=== PATIENT | female | born 1945 | race Two or more races ===

== ENCOUNTER 2018-09-11 14:18 | Emergency (ER) | payer BC, OTHER ==
[2018-09-11 14:33] VITALS: PULSE 70; TEMP 98; BMI 32.1
--- NOTE | 2018-09-11 14:54 | PDOC ---
Attending Attestation - Resident Resident Name: Purvi Vivar - ED Attending Attestation I have performed the following: I have examined & evaluated the patient, The case was reviewed & discussed with the resident, I agree w/resident's findings & plan - HPI HPI: 09/11/18 16:43 The patient is a 72 year old female, with a significant past medical history of hypertension, hyperlipidemia, diabetes, and CAD (with VT 2012) stenting x2 @[facility]) , who presents to the emergency department with, left shoulder pain. She denies recent fevers, chills, headache or dizziness. She denies recent nausea, vomit, diarrhea or constipation. She denies recent dysuria, frequency, urgency or hematuria. She denies recent shortness of breath. Allergies: NKDA Past surgical history: Cardiac stenting x2 Social history: Smoker. Primary Care Physician: Dr. Nash <Fawn Kumar - Last Filed: 09/11/18 16:43> - Physicial Exam PE: 09/12/18 19:17 Agree with resident exam. PAteint is alert and in NAD. Lungs are clear. Heart regular rate and rhythm. No shoulder pain or tenderness. - Medical Decision Making 09/12/18 19:18 Pt presents to the ED complaining of a one day history of constant L shoulder pain without chest pain or shortness of breath. Denies other complaints. EKG and troponin are within normal limits. ACS unlikely given the atypical nature of her symptoms and her normal EKG and troponin. will discharge home. <Minna Crawford - Last Filed: 09/12/18 19:19> Attestations - Attestations 09/11/18 16:44 Documentation prepared by Fawn Kumar, acting as medical social consultant for Minna Crawford MD. <Fawn Kumar - Last Filed: 09/11/18 16:43>
--- NOTE | 2018-09-11 15:17 | PDOC ---
History of Present Illness - General Chief Complaint: Pain, Acute Stated Complaint: LT SHOULDER PAIN Time Seen by Provider: 09/11/18 14:46 History Source: Patient Exam Limitations: No Limitations - History of Present Illness Initial Comments: 09/11/18 14:52 72YOF with h/o hypertension, hyperlipidemia, diabetes, and CAD with [place] (2011) status post 2 stents done at [facility], who p/w left shoulder pain since awakening this morning. Denies any falls or injuries, believes that she slept on the arm wrong. Denies any recent f/c/n/v/d/c, numbness, tingling, weakness, SOB, chest pain, etc. Took Tylenol last dose this morning without relief. Past History - Past Medical History Allergies/Adverse Reactions: Allergies Allergy/AdvReac Type Severity Reaction Status Date / Time No Known Allergies Allergy Verified 12/25/14 16:11 Home Medications: Ambulatory Orders Glimepiride [Amaryl] 4 mg PO DAILY 04/03/12 metFORMIN HCL [Glucophage -] 1,000 mg PO BID 04/03/12 Clopidogrel Bisulfate [Plavix -] 75 mg PO DAILY 06/24/13 Lisinopril [Prinivil] 20 mg PO DAILY 06/24/13 Amlodipine Besylate [Norvasc -] 10 mg PO DAILY 07/05/13 Aspirin [ASA -] 81 mg PO DAILY 07/05/13 Carvedilol [Coreg] 6.25 mg PO BID 07/05/13 Levofloxacin [Levaquin] 750 mg PO DAILY #5 tablet 12/27/14 Metronidazole [Flagyl] 500 mg PO TID #18 tablet 12/27/14 Anemia: No Asthma: Yes Cancer: No Cardiac Disorders: No CVA: No COPD: No CHF: No DVT: No Dementia: No Diabetes: Yes (controlled w/ oral pills) Dialysis: No GI Disorders: No Disorders: No HTN: Yes Hypercholesterolemia: Yes Liver Disease: No Thyroid Disease: No - Surgical History Abdominal Surgery: Yes Cholecystectomy: Yes - Suicide/Smoking/Psychosocial Hx Smoking Status: No Smoking History: Current every day smoker Have you smoked in the past 12 months: No Number of Cigarettes Smoked Daily: 0 Information on smoking cessation initiated: No Hx Alcohol Use: No Drug/Substance Use Hx: No Substance Use Type: Alcohol Hx Substance Use Treatment: No Review of Systems - Review of Systems Able to Perform ROS?: Yes Comments:: GEN: no fever, chills, malaise, generalized weakness, or weight change HEENT: no ear pain, sore throat, vision change, or eye pain CV: no chest pain, palpitations, lightheadedness, syncope, or edema RESP: no cough, wheezing, or SOB GI: no abdominal pain, nausea, vomiting, diarrhea, constipation, or white/black/ bloody stool : no dysuria, hematuria, incontinence, retention, bleeding, or discharge MSK: left upper back/shoulder pain, otherwise no muscle weakness/pain, or joint swelling/pain NEURO: no headache, seizure, vertigo, numbness, tingling, or focal weakness PSYCH: no substance use, no behavior change SKIN: no jaundice, no rash ROS otherwise negative except as noted in HPI *Physical Exam - Vital Signs Last Vital Signs Temp Pulse Resp BP Pulse Ox 98.0 F 70 16 148/72 100 09/11/18 14:18 09/11/18 14:18 09/11/18 14:18 09/11/18 14:18 09/11/18 14:18 - Physical Exam Comments: GENERAL: well-appearing, A/Ox4, no distress, answers questions appropriately HEENT: PERRLA, EOMI, moist mucous membranes NECK/BACK: no midline ttp, no spinal stepoff or deformity, no hematoma, full ROM , neck supple, patient points to area of maximal pain (points overlying left scapula) but this is nontender to palpation CARDIOVASCULAR: regular rate/rhythm, normal S1S2, no MGR, strong peripheral pulses, capillary refill <2 seconds, extremities wwp, no edema LUNGS/RESPIRATORY: no respiratory distress, CTAB GI/ABDOMEN: symmetric [id number], normoactive BS, soft, no ttp, no midline pulsatile masses : no CVA tenderness EXTREMITIES: left shoulder full ROM without pain, no muscle atrophy, no acute deformity, no edema SKIN: warm and dry, no pallor, no jaundice, no rash, no bruising, no skin breakdown, no cuts, no lesions NEUROLOGICAL: GCS 15, CN II-XII grossly intact, 5/5 strength proximally and distally, no facial droop Moderate Sedation - Procedure Monitoring Vital Signs: Procedure Monitoring Vital Signs Temperature 98.0 F 09/11/18 14:18 Pulse Rate 70 09/11/18 14:18 Respiratory Rate 16 09/11/18 14:18 Blood Pressure 148/72 09/11/18 14:18 O2 Sat by Pulse Oximetry (%) 100 09/11/18 14:18 ED Treatment Course - LABORATORY CBC & Chemistry Diagram: 09/11/18 15:40 09/11/18 15:40 *DC/Admit/Observation/Transfer Diagnosis at time of Disposition: Shoulder pain Qualifiers: Chronicity: acute Laterality: left Qualified Code(s): M25.512 - Pain in left shoulder - Discharge Dispostion Disposition: HOME Condition at time of disposition: Stable Decision to Admit order: No - Referrals Referrals: Talha Nash MD [Primary Care Provider] - - Patient Instructions Printed Discharge Instructions: DI for Shoulder Pain Additional Instructions: You were seen in the ER for shoulder and upper back pain. We did lab work, an electrocardiogram, and a shoulder and chest x-ray, and we did not find any concerning abnormalities. After our assessment, we do not believe you are having a medical emergency at this time, and we believe you are safe to go home. Take over the counter pain medications for your pain, as instructed on the medication label. Please follow up with your primary care provider in 1-3 days. Call their clinic as soon as possible, tell them you were seen in the ER, and tell them you need an appointment. If you have any new or worsening symptoms , especially worsening chest pain, jaw pain, shoulder/arm pain, shortness of breath, sweats, nausea, loss of consciousness, palpitations, or other symptoms, please come back to the ER at any time (24 hours a day). If you are having severe or life threatening symptoms, or symptoms that make it unsafe to drive or have someone drive you, please call 911. Usted fue atendido en la zuri de emergencias por dolor de hombro y espalda superior. Hicimos un trabajo de laboratorio, un electrocardiograma y tania radiografa de hombro y trax, y no encontramos ninguna anomala preocupante. Despus de nuestra evaluacin, no creemos que tenga tania emergencia mdica en preet momento, y creemos que puede irse a casa sin peligro. [place] los medicamentos para el dolor de venta melissa para callahan dolor, joe se indica en la etiqueta del medicamento. Por favor, lauren un seguimiento con callahan proveedor de atencin primaria en 1-3 grayson. Llame a callahan clnica lo antes posible, dgales que lo atendieron en la zuri de emergencias y que necesita tania luis f. Si tiene algn sntoma nuevo o que empeora, especialmente empeoramiento del dolor en el pecho, dolor en la mandbula, dolor en el hombro / brazo, falta de aliento, sudor, nusea, prdida de conciencia, palpitaciones u otros sntomas, vuelva a la zuri de emergencias en cualquier momento ( 24 horas al suzan). Si tiene sntomas graves o potencialmente mortales, o sntomas que hacen que no sea seguro conducir o que alguien lo lleve, llame al 911. - Post Discharge Activity
[2018-09-11 15:49] LABS: BASO % 1.1 % (0-2.0); EOS % 2.4 % (0-4.5); HEMATOCRIT 38.2 % (32.4-45.2); HEMOGLOBIN 12.9 GM/dL (10.7-15.3); LYMPH % 22.6 % (8-40); MCH 31.5 pg (25.7-33.7); MCHC 33.7 g/dl (32.0-36.0); MEAN CELL VOLUME 93.5 fl (80-96); MEAN PLT VOLUME 7.8 fl (7.5-11.1); MONO % 6.9 % (3.8-10.2); PLATELET COUNT 248 K/MM3 (134-434); RBC 4.09 M/mm3 (3.60-5.2); RDW 13.1 % (11.6-15.6); WHITE BLOOD COUNT 9.2 K/mm3 (4.0-10.0)
[2018-09-11 16:20] LABS: ALBUMIN 3.5 g/dl (3.4-5.0); ALK PHOS 84 U/L (45-117); ANION GAP 9 MMOL/L (8-16); BILIRUBIN,TOTAL 0.2 mg/dL (0.2-1); BLOOD UREA NITROGEN 16 mg/dL (7-18); CALCIUM 8.8 mg/dL (8.5-10.1); CHLORIDE 109 mmol/L (98-107); CO2 23 mmol/L (21-32); CREATININE 1.1 mg/dL (0.55-1.3); GLUCOSE,RANDOM 237 mg/dL (74-106); MAGNESIUM 1.7 mg/dL (1.8-2.4); POTASSIUM 4.1 mmol/L (3.5-5.1); SGOT/AST 13 U/L (15-37); SGPT/ALT 19 U/L (13-61); SODIUM 141 mmol/L (136-145)
[2018-09-11] MEDS ORDERED: ACETAMINOPHEN 500 MG TABLET (FP) PO ONE (18:21)
[2018-09-11] MEDS ORDERED: ACETAMINOPHEN 325 MG TABLET (FP) ONE (18:38)
[2018-09-11 18:48] VITALS: BP 135/75
--- NOTE | 2018-09-12 16:44 | EKG ---
Test Reason : Blood Pressure : / mmHG Vent. Rate : 067 BPM Atrial Rate : 067 BPM P-R Int : 166 ms QRS Dur : 082 ms QT Int : 388 ms P-R-T Axes : 040 018 049 degrees QTc Int : 409 ms NORMAL SINUS RHYTHM NORMAL ECG WHEN COMPARED WITH ECG OF 25-DEC-2014 18:08, CRITERIA FOR INFERIOR INFARCT ARE NO LONGER PRESENT NONSPECIFIC T WAVE ABNORMALITY, IMPROVED IN INFERIOR LEADS NONSPECIFIC T WAVE ABNORMALITY NO LONGER EVIDENT IN ANTEROLATERAL LEADS Confirmed by Jailyn Pierson ([id number]) on 09/12/2018 4:43:55 PM Referred By: Confirmed By:Jailyn Pierson
== END 2018-09-11 18:47 | disposition home or self-care (01) ==
LOC: JER 14:18
DX: M25.512 Pain in left shoulder (principal); E78.5 Hyperlipidemia, unspecified; E11.9 Type 2 diabetes mellitus without complications; I25.10 Atherosclerotic heart disease of native coronary artery without angina pectoris; I25.2 Old myocardial infarction; Z95.5 Presence of coronary angioplasty implant and graft; I10 Essential (primary) hypertension; E78.00 Pure hypercholesterolemia, unspecified
CPT/HCPCS: 36415; 71046-TC-FY; 73030-TC-LT-FY; 80053; 82550; 82553; 83735; 84484; 85025; 93005; 93010; 99282-25

== ENCOUNTER 2019-03-01 06:25 | Emergency (ER) | payer BC, OTHER ==
[2019-03-01 06:51] VITALS: TEMP 98.1; BMI 30.1
--- NOTE | 2019-03-01 07:16 | PDOC ---
History of Present Illness - General Chief Complaint: Blood Pressure Problem Stated Complaint: HYPERTENSION Time Seen by Provider: 03/01/19 07:03 - History of Present Illness Initial Comments: 03/01/19 09:23 The patient is a 73 year old female with a history of HTN, DM who presents for evaluation of elevated blood pressure. The patient reports 1 episode of non- bilious, non-bloody vomiting with associated 2 episodes of diarrhea 1 day ago. She noted some generalized weakness earlier this morning prompting her presentation to the ED for further evaluation. She noted that her blood pressure was elevated here in the ED as well. She notes on presentation that her symptom have resolved and she is currently asymptomatic. She otherwise denies fevers, chills, SOB, chest pain, nausea, vomiting, abdominal pain, or changes with urination or bowel movements. Past History - Past Medical History Allergies/Adverse Reactions: Allergies Allergy/AdvReac Type Severity Reaction Status Date / Time No Known Allergies Allergy Verified 03/01/19 06:51 Home Medications: Ambulatory Orders Glimepiride [Amaryl] 4 mg PO DAILY 04/03/12 metFORMIN HCL [Glucophage -] 1,000 mg PO BID 04/03/12 Lisinopril [Prinivil] 20 mg PO DAILY 06/24/13 Amlodipine Besylate [Norvasc -] 10 mg PO DAILY 07/05/13 Aspirin [ASA -] 81 mg PO DAILY 07/05/13 Metronidazole [Flagyl] 500 mg PO TID #18 tablet 12/27/14 Anemia: No Asthma: Yes Cancer: No Cardiac Disorders: No CVA: No COPD: No CHF: No DVT: No Dementia: No Diabetes: Yes (controlled w/ oral pills) Dialysis: No GI Disorders: No Disorders: No HTN: Yes Hypercholesterolemia: No Liver Disease: No Thyroid Disease: No - Surgical History Abdominal Surgery: Yes Cholecystectomy: Yes - Suicide/Smoking/Psychosocial Hx Smoking Status: No Smoking History: Unknown if ever smoked Have you smoked in the past 12 months: No Number of Cigarettes Smoked Daily: 0 Information on smoking cessation initiated: No Hx Alcohol Use: No Drug/Substance Use Hx: No Substance Use Type: Alcohol Hx Substance Use Treatment: No Review of Systems - Review of Systems Comments:: 03/01/19 09:31 Constitutional: No fevers, chills, malaise HEENT: No Rhinorrhea, nasal congestion, visual changes Cardiovascular: No chest pain, syncope, palpitations, lightheadedness Respiratory: No Cough, SOB, Hemoptysis, Gastrointestinal: Nausea, vomiting. No Abdominal pain, Constipation, Diarrhea, Melena Genitourinary: No Dysuria, Frequency, Urgency, Hesitancy, Hematuria, Flank pain Musculoskeletal: No Myalgia, arthralgia Skin: No rashes, itching, bruising, pallor Neurologic: No Headache, Dizziness, Numbness, Weakness, or Tingling Psychiatric: No Hallucinations. No SI or HI *Physical Exam - Vital Signs Last Vital Signs Temp Pulse Resp BP Pulse Ox 98.1 F 53 L 16 186/79 H 98 03/01/19 06:46 03/01/19 06:46 03/01/19 06:46 03/01/19 06:46 03/01/19 06:46 - Physical Exam Comments: 03/01/19 09:32 General Appearance: Nourished. No Apparent Distress HEENT: EOMI, OSKAR. No Pharyngeal Erythema, Tonsillar Exudate, Tonsillar Erythema Neck: No Cervical Lymphadenopathy Respiratory/Chest: Lungs Clear, Normal Breath Sounds. No Crackles, Rales, Rhonchi, Wheezing Cardiovascular: Regular Rhythm, Regular Rate. No Murmur, Gallops, Rubs Gastrointestinal/Abdominal: Normal Bowel Sounds, Soft. No Guarding, Rebound, Tenderness Musculoskeletal: No CVA Tenderness Extremity: Normal Capillary Refill Integumentary: Normal Color, Dry, Warm Neurologic: Fully Oriented, Alert, Normal Mood/Affect, Normal Response, ED Treatment Course - LABORATORY CBC & Chemistry Diagram: 03/01/19 07:35 03/01/19 08:42 Medical Decision Making - Medical Decision Making 03/01/19 09:33 The patient is a 73 year old female with a history of HTN, DM who presents for evaluation of elevated blood pressure. Given the patient's history and physical exam, we will obtain a cbc, cmp, troponin, ekg, chest plain film to evaluate further. The patient notes that she did not take her blood pressure medications today. We will treat her with her home doses of norvasc and lisinopril and continue to monitor and reassess while here in the ED. 03/01/19 10:37 CBC, cmp, troponin are unremarkable. Chest plain film is unremarkable as read by our radiologist. The patient continues to remain asymptomatic with improvement in her blood pressure after treatment with her home medications. We are comfortable discharging the patient home in stable condition. Patient and family made aware of impression and plan, return precautions discussed including but not limited to worsening pain or symptoms, fevers, or signs of infection, chest pain, respiratory distress, inability to tolerate oral intake, dehydration, syncope, or neurologic changes. The patient is to follow up with PMD as recommended within 1 week, follow up information provided and the patient will call for an appointment. The patient is to take medications as instructed for duration of time and continue with supportive care, avoid triggers and precipitants. Patient is safe for outpatient follow-up. *DC/Admit/Observation/Transfer Diagnosis at time of Disposition: HTN (hypertension) Qualifiers: Hypertension type: unspecified Qualified Code(s): I10 - Essential (primary) hypertension - Discharge Dispostion Disposition: HOME Condition at time of disposition: Stable Decision to Admit order: No - Referrals Referrals: Talha Nash MD [Primary Care Provider] - - Patient Instructions Printed Discharge Instructions: DI for High Blood Pressure, How to Monitor Your Blood Pressure at Home Additional Instructions: 1) Please follow-up with your primary care doctor in the next 2-3 days. Please call tomorrow to schedule a follow up appointment. If you cannot follow up with your doctor within 1 week please return to the Emergency Department for any urgent issues. 2) Your laboratory / imaging results were normal here in the ER. 3) If you have any worsening of symptoms or any other concerns please return to the ER immediately. Return if worsening symptoms including fevers, headache, vomiting, visual or hearing disturbances, abdominal pain, chest pain, shortness of breath, syncope, dehydration, inability to take things by mouth/vomiting, altered mental status, or worsening concerning symptoms. 4) Please continue taking your home medications as directed. Side effects may include upset stomach, abdominal pain, vomiting, or diarrhea. Do not drink alcohol with your medications. - Post Discharge Activity
[2019-03-01] MEDS ORDERED: LISINOPRIL 20 MG TABLET (FP) PO ONE (07:21)
[2019-03-01] MEDS ORDERED: amLODIPine BESYLATE 10 MG TABLET (FP) PO ONE (07:21)
[2019-03-01] MEDS ORDERED: LISINOPRIL 20 MG TABLET (FP) ONE (07:24)
[2019-03-01] MEDS ORDERED: amLODIPine BESYLATE 5 MG TABLET (FP) ONE (07:24)
--- NOTE | 2019-03-01 07:47 | PDOC ---
Attending Attestation - Resident Resident Name: Yony Vicente - ED Attending Attestation I have performed the following: I have examined & evaluated the patient, The case was reviewed & discussed with the resident, I agree w/resident's findings & plan - HPI HPI: 03/01/19 07:47 72YOF with h/o hypertension, hyperlipidemia, diabetes, and CAD with [place] (2011) status post 2 stents presenting with weakness today, preceded by n/v/d, nonbloody and nonbilious since yesterday, missed her AM antihypertensive agents. PMD Dr Esparza - Physicial Exam PE: 03/01/19 07:48 Agree with the resident's HPI and PE as documented in the electronic medical record. alert, oriented appropriately, NAD, well appearing, EOMI, PERRL, MMM, nl conjunctiva, anicteric; neck supple. lungs clear, RRR, no murmur, abdomen soft nontender. Back nontender. MONET x4, no focal neuro deficits. No peripheral edema. normal color for ethnicity, WWP. 03/01/19 07:48 - Medical Decision Making 03/01/19 07:57 See HPI for details. Prior notes reviewed, including admissions, discharges and consultations. Vital signs reviewed, asympatomatic, HTN at 186/79 Vital Signs Temp Pulse Resp BP Pulse Ox 98.1 F 53 L 16 186/79 H 98 03/01/19 06:46 03/01/19 06:46 03/01/19 06:46 03/01/19 06:46 03/01/19 06:46 DDX htn urgency/emergency, electrolyte/metabolic derangements, dehydration, ACS , arrhythmia, Cr elevation, end organ damage no e/o encephalopathy. no e/o CHF laboratory results and imaging reviewed, basic labs and lytes wnl, CXR_cardiomegaly, stable, no infiltrate or edema Cardiac panel_neg trop, reassuring, doubt cardiac/ACS EKG normal sinus rhythm at 55 bpm, no interval abnormalities, narrow QRS, ST and T wave segments and morphology normal. Nonspecific T wave abnormalities ED course -interventions: lisinopril and norvasc, reassess BP otherwise asymptomatic HTN, missed AM dose and had episodes of n/v/d since resolving abdomen benign, no tenderness, no peritoneal findings repeat VS improved downtrending BP advised rest and hydration, compliance with antihypertensive and medication regimen. 'Pt to be discharged in stable condition. Patient made aware of clinical impression, treatment recommendations and disposition plan, return precautions discussed (including but not limited to new or persistent/worsening symptoms, pain, fevers, or signs of infection, chest pain, respiratory distress, inability to tolerate oral intake, dehydration, syncope, or neurologic changes) . Follow up with PMD and/or specialist as recommended, follow up information provided, take medications as instructed for duration of time. continue with supportive care, avoid triggers and precipitants. All questions answered to patient's satisfaction and expressed understanding and comfort with this. At the time of discharge, the patient is alert, clinically improved, tolerating po and verbalizes understanding of instructions, satisfied with the care received and felt comfortable with the plan. Patient does not suffer from an acute life- threatening medical condition at this time and is safe for outpatient follow- up. 03/01/19 07:59 03/01/19 10:11 03/01/19 10:12 Heart Score/ECG Review #1 ECG reviewed & interpreted by me at: 07:45 General ECG Interpretation: Sinus Rhythm, Normal Intervals Compared to previous ECG there are: No significant change 03/01/19 07:58 EKG normal sinus rhythm at 55 bpm, no interval abnormalities, narrow QRS, ST and T wave segments and morphology normal. Nonspecific T wave abnormalities
[2019-03-01 08:01] LABS: BASO % 0.8 % (0-2.0); EOS % 2.7 % (0-4.5); HEMATOCRIT 37.7 % (32.4-45.2); HEMOGLOBIN 12.8 GM/dL (10.7-15.3); LYMPH % 22.1 % (8-40); MCH 31.3 pg (25.7-33.7); MCHC 33.9 g/dl (32.0-36.0); MEAN CELL VOLUME 92.4 fl (80-96); MEAN PLT VOLUME 7.4 fl (7.5-11.1); MONO % 5.6 % (3.8-10.2); NEUT % 68.8 % (42.8-82.8); PLATELET COUNT 285 K/MM3 (134-434); RBC 4.08 M/mm3 (3.60-5.2); RDW 13.2 % (11.6-15.6)
[2019-03-01 09:25] LABS: ALK PHOS 81 U/L (45-117); ANION GAP 6 MMOL/L (8-16); BILIRUBIN,TOTAL 0.4 mg/dL (0.2-1); BLOOD UREA NITROGEN 15.3 mg/dL (7-18); CALCIUM 9.4 mg/dL (8.5-10.1); CHLORIDE 106 mmol/L (98-107); CO2 28 mmol/L (21-32); CREATININE 1.2 mg/dL (0.55-1.3); GLUCOSE,RANDOM 101 mg/dL (74-106); MAGNESIUM 2.3 mg/dL (1.8-2.4); POTASSIUM 4.2 mmol/L (3.5-5.1); SGOT/AST 32 U/L (15-37); SGPT/ALT 26 U/L (13-61); SODIUM 140 mmol/L (136-145); TOT PROT 7.7 g/dl (6.4-8.2)
[2019-03-01 10:35] VITALS: BP 163/73; PULSE 71
--- NOTE | 2019-03-01 17:28 | EKG ---
Test Reason : Blood Pressure : / mmHG Vent. Rate : 055 BPM Atrial Rate : 055 BPM P-R Int : 168 ms QRS Dur : 084 ms QT Int : 434 ms P-R-T Axes : 051 000 032 degrees QTc Int : 415 ms SINUS BRADYCARDIA INFERIOR INFARCT , AGE UNDETERMINED ABNORMAL ECG WHEN COMPARED WITH ECG OF 11-SEP-2018 14:28, INFERIOR INFARCT IS NOW PRESENT Confirmed by MARTI COLLINS MD ([id number]) on 03/01/2019 5:28:37 PM Referred By: Confirmed By:MARTI COLLINS MD
== END 2019-03-01 11:02 | disposition home or self-care (01) ==
LOC: JER 06:25
DX: I10 Essential (primary) hypertension (principal); E11.9 Type 2 diabetes mellitus without complications
CPT/HCPCS: 36415; 71045-TC-FY; 80053; 82550; 82553; 83735; 84100; 84484; 85025; 93005; 93010; 99283-25

== ENCOUNTER 2019-06-28 18:14 | Emergency (ER) | payer OTHER ==
[2019-06-28 18:26] VITALS: BP 175/76; PULSE 74; TEMP 98.4; BMI 30.8
--- NOTE | 2019-06-28 19:52 | PDOC ---
*Physical Exam - Vital Signs Last Vital Signs Temp Pulse Resp BP Pulse Ox 98.4 F 74 16 175/76 H 99 06/28/19 18:20 06/28/19 18:20 06/28/19 18:20 06/28/19 18:20 06/28/19 18:20 ED Treatment Course - LABORATORY CBC & Chemistry Diagram: 06/28/19 20:20 06/28/19 20:20 Medical Decision Making - Medical Decision Making 06/28/19 19:51 Patient seen by the advanced practice provider under my direct supervision. Ancillary testing reviewed as necessary. I agree with plan as outlined by the advanced practice provider. Discharge - Discharge Information Problems reviewed: Yes Clinical Impression/Diagnosis: Dizziness Hypertension Qualifiers: Hypertension type: unspecified Qualified Code(s): I10 - Essential (primary) hypertension Condition: Stable - Follow up/Referral Referrals: Talha Nash MD [Primary Care Provider] - Call tomorrow - Patient Discharge Instructions Patient Printed Discharge Instructions: Recommendations to Help Prevent High Blood Pressure Additional Instructions: start a low sodium diet. please follow up with your doctor Additional Instructions: * Please call your personal physician to report your Emergency Department visit and to report your progress, if any. * If there is no improvement in symptoms in 2 days call your physician. * Return to the Emergency Department for any worsening symptoms. - Post Discharge Activity
--- NOTE | 2019-06-28 20:09 | PDOC ---
History of Present Illness - General Chief Complaint: Nausea Stated Complaint: Nausea Time Seen by Provider: 06/28/19 19:50 History Source: Patient - History of Present Illness Initial Comments: 06/28/19 20:02 73 year old female with dizziness since last night, nausea and high blood pressure since last night. denies headache, vomiting, chest pain, cough, abdominal pain, urinary symptoms. patient is currently on carvedilol and lisinopril. reports that nausea and dizziness has resolved PMHX: diabetes, hypertension, hypercholesterolemia, carotid stent PMD: [place] 06/28/19 20:05 06/28/19 20:14 06/28/19 20:15 Past History - Past Medical History Allergies/Adverse Reactions: Allergies Allergy/AdvReac Type Severity Reaction Status Date / Time No Known Allergies Allergy Verified 03/01/19 06:51 Home Medications: Ambulatory Orders Glimepiride [Amaryl] 4 mg PO DAILY 04/03/12 metFORMIN HCL [Glucophage -] 1,000 mg PO BID 04/03/12 Lisinopril [Prinivil] 20 mg PO DAILY 06/24/13 Amlodipine Besylate [Norvasc -] 10 mg PO DAILY 07/05/13 Aspirin [ASA -] 81 mg PO DAILY 07/05/13 Metronidazole [Flagyl] 500 mg PO TID #18 tablet 12/27/14 Anemia: No Asthma: Yes Cancer: No Cardiac Disorders: No CVA: No COPD: No CHF: No DVT: No Dementia: No Diabetes: Yes (controlled w/ oral pills) Dialysis: No GI Disorders: No Disorders: No HTN: Yes Hypercholesterolemia: No Liver Disease: No Thyroid Disease: No - Surgical History Abdominal Surgery: Yes Cholecystectomy: Yes - Immunization History Immunization Up to Date: No - Psycho Social/Smoking Cessation Hx Smoking Status: No Smoking History: Never smoked Have you smoked in the past 12 months: No Number of Cigarettes Smoked Daily: 0 Information on smoking cessation initiated: No Hx Alcohol Use: No Drug/Substance Use Hx: No Substance Use Type: Alcohol Hx Substance Use Treatment: No Cardiac Specific PMH - Complaint Specific PMHX Abdominal Aortic Aneurysm: No Angina: No Cardiac Arrhythmia: No Cardiac Stent: No GERD: No Pacemaker: No Pulmonary Embolus: No Valvular Heart Disease: No Review of Systems - Review of Systems Able to Perform ROS?: Yes Is the patient limited Qatari proficient: No Constitutional: No: Symptoms Reported, See HPI, Chills, Diaphoresis, Fever, Loss of Appetite, Malaise, Night Sweats, Weakness, Weight Stable, Unintentional Wgt. Loss, Unexplained wgt Loss, Other ABD/GI: Yes: Nausea Neurological: Yes: Dizziness *Physical Exam - Vital Signs Last Vital Signs Temp Pulse Resp BP Pulse Ox 98.4 F 74 16 175/76 H 99 06/28/19 18:20 06/28/19 18:20 06/28/19 18:20 06/28/19 18:20 06/28/19 18:20 - Physical Exam General Appearance: Yes: Appropriately Dressed Respiratory/Chest: positive: Lungs Clear, Normal Breath Sounds Cardiovascular: positive: Regular Rhythm, Regular Rate Gastrointestinal/Abdominal: positive: Normal Bowel Sounds, Soft. negative: Tender Extremity: positive: Normal Capillary Refill, Normal Inspection, Normal Range of Motion Integumentary: positive: Normal Color, Dry, Warm Neurologic: positive: microbiology analyst II-XII NML intact, Fully Oriented, Alert, Normal Mood/ Affect, Motor Strength 5/5, Finger to Nose (intact) Heart Score/ECG Review - History History: Slightly suspicious - Electrocardiogram EKG: Normal - Age Age: >/= 65 - Risk Factors Risk Factors Heart Score: Yes Hx Hypertension, Yes Hx Diabetes Based on the list above the patient has:: 1-2 risk factors - Troponin Troponin: </= normal limit - Score Heart Score - Total: 3 - ECG Intrepretation Rhythm: Regular Rhythm Comment:: 06/28/19 21:59 NSR: 63 bpm ED Treatment Course - LABORATORY CBC & Chemistry Diagram: 06/28/19 20:20 06/28/19 20:20 - ADDITIONAL ORDERS Additional order review: Laboratory Results 06/28/19 06/28/19 06/28/19 20:20 20:20 20:20 PT with INR 10.60 INR 0.90 PTT (Actin FS) 30.5 Sodium 137 Potassium 4.7 Chloride 105 Carbon Dioxide 26 Anion Gap 6 L BUN 18.5 H Creatinine 1.2 Est GFR (CKD-EPI)AfAm 51.92 Est GFR (CKD-EPI)NonAf 44.80 Random Glucose 160 H Calcium 9.6 Magnesium 2.0 Total Bilirubin 0.3 AST 13 L ALT 19 Alkaline Phosphatase 92 Creatine Kinase 163 Creatine Kinase Index No Result Required. CK-MB (CK-2) < 1.0 Troponin I < 0.02 Total Protein 7.8 Albumin 4.2 06/28/19 20:20 RBC 4.27 MCV 94.5 MCHC 32.7 RDW 13.0 MPV 8.1 Neutrophils % 67.5 Lymphocytes % 24.3 Monocytes % 5.5 Eosinophils % 1.6 Basophils % 1.1 - RADIOLOGY Radiology Studies Ordered: Category Date Time Status CHEST PA & LAT [RAD] Stat Radiology 06/28/19 20:09 Taken - Medications Given in the ED: ED Medications Discontinued Medications Generic Name Dose Route Start Last Admin Trade Name Freq PRN Reason Stop Dose Admin Ondansetron HCl 4 mg 06/28/19 20:15 06/28/19 21:08 Zofran Odt - SL 06/28/19 20:16 4 mg ONCE ONE Administration Medical Decision Making - Medical Decision Making 06/28/19 20:17 Essential hypertension ; nausea/ dizziness P: labs EKG chest xray 06/28/19 21:58 patient is asymptomatic. denies nausea/ dizziness. no chest pain. will d/c home for close pcp follow up Discharge - Discharge Information Problems reviewed: Yes Clinical Impression/Diagnosis: Dizziness Hypertension Qualifiers: Hypertension type: unspecified Qualified Code(s): I10 - Essential (primary) hypertension Condition: Stable - Follow up/Referral Referrals: Talha Nash MD [Primary Care Provider] - Call tomorrow - Patient Discharge Instructions Patient Printed Discharge Instructions: Recommendations to Help Prevent High Blood Pressure Additional Instructions: start a low sodium diet. please follow up with your doctor Additional Instructions: * Please call your personal physician to report your Emergency Department visit and to report your progress, if any. * If there is no improvement in symptoms in 2 days call your physician. * Return to the Emergency Department for any worsening symptoms. - Post Discharge Activity
[2019-06-28] MEDS ORDERED: ONDANSETRON *ODT* 4 MG TABLET SL ONE (20:15)
[2019-06-28 20:34] LABS: BASO % 1.1 % (0-2.0); EOS % 1.6 % (0-4.5); HEMATOCRIT 40.4 % (32.4-45.2); HEMOGLOBIN 13.2 GM/dL (10.7-15.3); LYMPH % 24.3 % (8-40); MCH 30.9 pg (25.7-33.7); MCHC 32.7 g/dl (32.0-36.0); MEAN CELL VOLUME 94.5 fl (80-96); MEAN PLT VOLUME 8.1 fl (7.5-11.1); MONO % 5.5 % (3.8-10.2); NEUT % 67.5 % (42.8-82.8); PLATELET COUNT 319 K/MM3 (134-434); RBC 4.27 M/mm3 (3.60-5.2); WHITE BLOOD COUNT 9.6 K/mm3 (4.0-10.0)
[2019-06-28 20:49] LABS: INR 0.9 (0.83-1.09); PROTHROMBIN TIME (PATIENT) 10.6 SEC (9.7-13.0)
[2019-06-28 20:52] LABS: ACTIVATED PTT 30.5 SECONDS (25.2-36.5)
[2019-06-28] MEDS ORDERED: ONDANSETRON *ODT* 4 MG TABLET ONE (21:05)
[2019-06-28 21:08] LABS: ALBUMIN 4.2 g/dl (3.4-5.0); BILIRUBIN,TOTAL 0.3 mg/dL (0.2-1); BLOOD UREA NITROGEN 18.5 mg/dL (7-18); CALCIUM 9.6 mg/dL (8.5-10.1); CREATININE 1.2 mg/dL (0.55-1.3); POTASSIUM 4.7 mmol/L (3.5-5.1); TOT PROT 7.8 g/dl (6.4-8.2)
--- NOTE | 2019-06-29 10:36 | EKG ---
Test Reason : Blood Pressure : / mmHG Vent. 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
== END 2019-06-28 22:33 | disposition home or self-care (01) ==
LOC: JER 18:14
DX: I10 Essential (primary) hypertension (principal); R11.0 Nausea; R42 Dizziness and giddiness; E11.9 Type 2 diabetes mellitus without complications; Z79.84 Long term (current) use of oral hypoglycemic drugs; E78.00 Pure hypercholesterolemia, unspecified; Z95.828 Presence of other vascular implants and grafts
CPT/HCPCS: 36415; 71046-TC-FY; 80053; 82550; 82553; 83735; 84484; 85025; 85610; 85730; 93005; 93010; 99282-25; Q0162